=== PATIENT | male | born 1965 | race Caucasian/White ===

== ENCOUNTER 2021-12-12 13:36 | Emergency (ER) | payer OTHER ==
[~2021-12-12] VITALS: Ht 175.3 cm; Wt 127.0 kg
[2021-12-12 14:10] VITALS: BP_SYST 157
--- NOTE | 2021-12-12 14:40 | NUR ---
pt bib self from workplace. CC laceration controlled bleeding. Pt right hand distal to forefinger laceration and avulsion. Pain 7/10. Pt states was handling fencing material when accident occurred. Pt states Tetanus current within past 5 years declines tetanus coverage at this time.Pt is aaox4, afebrile.
[2021-12-12] MEDS ORDERED: DIPHTH,PERTUSS(ACELL),TET VAC 0.5 ML VIAL (Tdap) I.M. ONE (14:45)
[2021-12-12] MEDS ORDERED: LIDOCAINE 1% 10 MG/ML, 20 ML MDV INJ ONE (14:45)
--- NOTE | 2021-12-12 16:45 | NUR ---
ER at bedside examining patient.
[2021-12-12] MEDS ORDERED: LIDOCAINE 2%, 20 ML MDV ONE (17:09)
[2021-12-12] MEDS ORDERED: BACEYEO OP (17:35)
[2021-12-12] MEDS ORDERED: CEPH-548 PO (17:35)
[2021-12-12] MEDS ORDERED: IBUP-1969 PO (17:35)
--- NOTE | 2021-12-12 18:50 | NUR ---
Patient given written and verbal discharge instructions and verbalizes understanding. ER MD discussed with patient the results and treatment provided. Patient in stable condition. ID arm band removed. IV catheter removed intact and dressing applied, no active bleeding. Rx of bacitracin,cephalexin and ibuprofen given. Patient educated on pain management and to follow up with PMD. Opportunity for questions provided and answered. Medication side effect fact sheet provided.
[2021-12-12 18:54] VITALS: BP_SYST 128
== END 2021-12-12 18:54 | disposition home or self-care (01) ==
LOC: SED 13:36
DX: S81.011A Laceration without foreign body, right knee, initial encounter (principal); M25.561 Pain in right knee; Z79.899 Other long term (current) drug therapy; W18.30XA Fall on same level, unspecified, initial encounter; Y93.89 Activity, other specified; Y92.89 Other specified places as the place of occurrence of the external cause; Y99.8 Other external cause status
CPT/HCPCS: 99283; 73560; 12004; J2001